=== PATIENT | female | born 1975 | race American Indian/Alaskan Native ===

== ENCOUNTER 2017-02-27 12:29 | Inpatient (IN) | payer MEDICAID ==
[2017-02-27 14:09] LABS: RBC URINE 37 /hpf (0-3); URINE BILIRUBIN NEGATIVE (NEGATIVE); URINE BLOOD 1+ (NEGATIVE); URINE COLOR Yellow (YELLOW); URINE GLUCOSE (UA) NORMAL (Normal); URINE KETONE NEGATIVE (NEGATIVE); URINE LEUKOCYTE ESTERASE NEG Leu/uL (Negative); URINE PROTEIN NEGATIVE (NEGATIVE); WBC URINE 9 /hpf (0-5)
[2017-02-27 14:14] LABS: BASO # 0.1 K/uL (0.0-0.2); BASO % 1.8 % (0.0-2.0); EOS # 0.3 K/uL (0.0-0.7); EOS % 5.4 % (0.0-4.0); HEMATOCRIT 39.1 % (34.0-47.0); LYMPH # 1.2 K/uL (1.0-4.3); LYMPH % 20.8 % (20.0-40.0); MEAN CELL VOLUME 87.1 fL (81.0-99.0); MEAN CORPUSCULAR HEMOGLOBIN 28.5 pg (27.0-31.0); MEAN CORPUSCULAR HGB CONC 32.7 g/dL (33.0-37.0); MEAN PLATELET VOLUME 8.7 fL (7.2-11.7); MONO # 0.9 K/uL (0.0-0.8); MONO % 16.3 % (0.0-10.0); NRBC % 0.1 % (0.0-2.0); RED CELL DISTRIBUTION WIDTH 14.4 % (11.5-14.5)
[2017-02-27 14:16] LABS: WHITE BLOOD COUNT 5.5 K/uL (4.8-10.8)
--- NOTE | 2017-02-27 14:51 | C.PDOC ---
Time Seen by Provider: 02/27/17 13:34 Chief Complaint (Nursing): Psychiatric Evaluation History Per: Patient Onset/Duration Of Symptoms: Days Current Symptoms Are (Timing): Still Present Suicide/Self Injury Attempted (Context): None Modifying Factor(s): Cocaine Severity: Moderate Associated Symptoms: denies: Suicidal Thoughts, Suicidal Plan Additional History Per: Prior Records Past Medical History Reviewed: Historical Data, Nursing Documentation, Vital Signs Vital Signs: Last Vital Signs Temp 98.4 F 02/27/17 13:55 Pulse 94 H 02/27/17 13:55 Resp 20 02/27/17 13:55 BP 158/73 H 02/27/17 13:55 Pulse Ox 100 02/27/17 14:51 - Medical History PMH: Bipolar Disorder, Depression, Hepatitis (C) Other Surgeries: "Ovary removal" Family History: States: Unknown Family Hx - Social History Hx Tobacco Use: Yes Hx Alcohol Use: Yes Hx Substance Use: Yes (IVDU Cocaine) Review Of Systems Except As Marked, All Systems Reviewed And Found Negative. Constitutional: Negative for: Fever, Weakness Cardiovascular: Negative for: Chest Pain Respiratory: Negative for: Shortness of Breath Gastrointestinal: Negative for: Vomiting, Abdominal Pain Musculoskeletal: Negative for: Neck Pain Neurological: Negative for: Weakness, Numbness, Seizures, Altered Mental Status Psych: Positive for: Anxiety Physical Exam - Physical Exam Appears: Non-toxic, No Acute Distress Skin: Normal Color, Warm, Dry, No Rash Head: Atraumatic, Normacephalic Eye(s): bilateral: PERRL, EOMI Neck: Normal ROM, Supple Cardiovascular: Rhythm Regular Respiratory: Normal Breath Sounds, No Accessory Muscle Use Gastrointestinal/Abdominal: Soft, No Tenderness Extremity: Normal ROM, No Deformity Neurological/Psych: Oriented x3, Normal Motor, Normal Sensation ED Course And Treatment - Laboratory Results Result Diagrams: 02/27/17 13:55 02/27/17 13:55 Lab Interpretation: No Acute Changes Urine POC: Negative O2 Sat by Pulse Oximetry: 100 Pulse Ox Interpretation: Normal Progress Note: Pt is medically stable for psychiatric admission. Disposition Counseled Patient/Family Regarding: Studies Performed, Diagnosis, Smoking Cessation - Disposition Disposition: HOSPITALIZED Disposition Time: 15:57 Condition: STABLE - Clinical Impression Clinical Impression: Bipolar disorder Decision To Admit - Pt Status Changed To: Hospital Disposition Of: Inpatient - Admit Certification Admit to Inpatient:: After my assessment, the patient will require hospitalization for at least two midnights. This is because of the severity of symptoms shown, intensity of services needed, and/or the medical risk in this patient being treated as an outpatient. - InPatient: Physician Admission Certification: I certify that this patient requires 2 or more midnights of care for the following reason:: Psych. - . Bed Request Type: Psychiatry Admitting Physician: Trice Mccabe Patient Diagnosis: Bipolar disorder
[2017-02-27 15:14] LABS: CHLORIDE 99 mmol/L (98-107); POTASSIUM 3.7 mmol/L (3.6-5.2); SODIUM 140 mmol/L (132-148)
[2017-02-27 15:16] LABS: BILIRUBIN,TOTAL 0.5 mg/dL (0.2-1.3); GFR AFRICAN-AMERICAN > 60
[2017-02-27 15:17] LABS: ALB/GLOB RATIO 1.1 (1.0-2.1); ALKALINE PHOSPHATASE 50 U/L (38-126); ALT/SGPT 20 U/L (9-52); AST/SGOT 35 U/L (14-36); BLOOD UREA NITROGEN 8 mg/dL (7-17); CALCIUM 9.1 mg/dl (8.6-10.4); CARBON DIOXIDE 29 mmol/L (22-30); GLUCOSE,RANDOM 99 mg/dL (65-105); TOTAL PROTEIN 7.9 g/dL (6.3-8.3)
[2017-02-27 15:18] LABS: ALCOHOL SERUM < 10 mg/dl (0-10)
[2017-02-27 16:47] VITALS: O2SAT 99
--- NOTE | 2017-02-28 10:32 | PCM.PSYCH ---
Initial Psychiatric Evaluation - Initial Psychiatric Evaluation Type of Admission: Voluntary Legal Status: Capacity Chief Complaint (in patient's own words): I was feeling very irritable History of Present Illness and Precipitating Events: Patient is a 41 years old female, who lives with her mother, has 2 children, currently unemployed with a long history of bipolar disorder came to the hospital with auditory hallucinations telling her to kill herself. Patient remained irritable, agitated and a bit disorganized throughout the interview. She was superficially cooperative but remained guarded about the details. She remained a poor historian. She does she had a verbal altercation with her mother and thats why she came to the hospital. Patient reports irritability, agitation poor sleep and poor appetite. She also reports racing of thoughts and flight of ideas. At times she reports depressed mood, feelings of hopelessness and helplessness and anhedonia. She denies any visual decisions and denied any persecutory delusions. She admits of abusing $400 worth of cocaine last week. She also admits to smoking marijuana off and on. she denies any other substance abuse. Next Past medical history None reported Current Medications: Active Medications Generic Name Dose Route Start Last Admin Trade Name Freq PRN Reason Stop Dose Admin Benztropine Mesylate 1 mg 02/28/17 00:29 Cogentin PO Q6 PRN Allergy symptoms Diphenhydramine HCl 50 mg 02/28/17 00:28 Benadryl PO Q6 PRN Extra Pyramidal Symptoms Divalproex Sodium 250 mg 02/28/17 10:[address] PO BID DEBORAH Haloperidol 5 mg 02/28/17 00:28 Haldol PO Q8 PRN Moderate Agitation Haloperidol Lactate 5 mg 02/28/17 00:28 Haldol IM Q8 PRN Moderate Agitation Lorazepam 1 mg 02/28/17 00:28 Ativan PO Q6 PRN Anxiety Risperidone 1 mg 02/28/17 10:30 Risperdal Tab PO BID DEBORAH Trazodone HCl 50 mg 02/28/17 22:00 Desyrel PO HS DEBORAH Past Psychiatric History - Past Psychiatric History Previous Treatment History: None Pertinent Medical Hx (Current Medical&Sleep Prob, Allergies): Allergies Allergy/AdvReac Type Severity Reaction Status Date / Time No Known Allergies Allergy Verified 02/27/17 12:40 [place] 02/27/17 Risperdal 02/27/17 Review of Systems - Review of Systems All systems: reviewed and no additional remarkable complaints except - Psychiatric Psychiatric: Anxiety, Auditory Hallucinations, Depression, Hopelessness, Irritability, Suicidal Ideation. absent: Paranoia, Visual Hallucinations Mental Status Examination - Personal Presentation Personal Presentation: Looks stated age - Affect Affect: Constricted, Depressed - Motor Activity Motor Activity: Calm - Reliability in Providing Information Reliability in Providing Information: Good - Speech Speech: Organized - Mood Mood: Depressed, Anxious - Formal Thought Process Formal Thought Process: Hallucinations, Delusions - Hallucinations/Delusions Hallucinations: Auditory Delusions: Persecution - Obsessions/Compulsions Obsessions: No Compulsions: No - Cognitive Functions Orientation: Person, Place, Situation, Time Sensorium: Alert Attention/Concentration: Attentive Abstract Thinking: [place] Estimate of Intelligence: Below average Judgement: Imparied, as evidence by: Poor judgement, Imparied, as evidence by: Lack of insight into illness - Risk Risk: Suicidal, Withdrawal, Diminished functioning - Strength & Assets Inventory Strength & Assets Inventory: Cooperative DSM 5 DX - DSM 5 DSM 5 Diagnosis: Bipolar disorder most recent episode mixed severe with psychotic features Cocaine use disorder severe Cannabis use disorder mild - Recommended/Plan of Treatment Treatment Recommendations and Plan of Treatment: Bipolar disorder most recent episode mixed severe with psychotic features CBT Psychoeducation Supportive therapy, individual therapy Depakote 250 mg by mouth twice a day Risperdal 1 mg by mouth twice a day Cogentin 1 mg by mouth twice a day Trazodone 50 mg PO Q HS Cocaine use disorder severe Monitor signs and symptoms Use [place] for abstinence Cannabis use disorder mild Monitor signs and symptoms Use [place] for abstinence - Smoking Cessation Smoking Cessation Initiated: No
[2017-02-28] MEDS: Divalproex 250 mg DR Tab PO SCH ×2 (11:28→18:22)
[2017-03-01] MEDS: Divalproex 250 mg DR Tab PO SCH (10:37)
--- NOTE | 2017-03-01 14:16 | PCM.PYCHPN ---
Psychiatric Progress Note - Psychiatric Progress Note Patient seen today, length of contact: 15 min Patient Chief Complaint: I am still feeling very irritable Problems Identified/Issues Discussed: Patient seen and evaluated, chart reviewed and discussed with the nurse. Patient still reports irritability and agitation. She remained isolated and withdrawn. She reports racing thoughts, and poor concentration. She still reports auditory hallucinations. However she is taking medications and denies any side effects. Supportive therapy and psychoeducation were given Medication Change: Yes (increase Depakote) Medical Record Reviewed: Yes Mental Status Examination - Cognitive Function Orientation: Person, Place, Situation, Time Memory: Intact Attention: WNL Concentration: Poor Association: WNL Fund of Knowledge: Poor - Mood Mood: Depressed, Anxious - Affect Affect: Constricted, Depressed - Formal Thought Process Formal Thought Process: Hallucinations, Delusions - Suicidal Ideation Suicidal Ideation: No - Homicidal Ideation Homicidal Ideation: No Goal/Treatment Plan - Goal/Treatment Plan Need for Continued Stay: Discharge may exacerbated symptoms, Severe functional impairment Progress Toward Problem(s) and Goals/Treatment Plan: Bipolar disorder most recent episode mixed severe with psychotic features CBT Psychoeducation Supportive therapy, individual therapy Depakote 250 mg by mouth daily Depakote 500 mg by mouth daily at bedtime Risperdal 1 mg by mouth twice a day Cogentin 1 mg by mouth twice a day Trazodone 50 mg PO Q HS Cocaine use disorder severe Monitor signs and symptoms Use [place] for abstinence Cannabis use disorder mild Monitor signs and symptoms Use [place] for abstinence - Smoking Cessation Smoking Cessation Initiated: No
[2017-03-01] MEDS ORDERED: Divalproex 500 mg DR Tab PO SCH (18:00)
[2017-03-01] MEDS: Divalproex 500 mg DR Tab PO SCH (22:30)
[2017-03-02] MEDS: Divalproex 250 mg DR Tab PO SCH (10:54)
--- NOTE | 2017-03-02 13:45 | PCM.PYCHPN ---
Psychiatric Progress Note - Psychiatric Progress Note Patient seen today, length of contact: 15 min Patient Chief Complaint: I am still feeling very irritable Problems Identified/Issues Discussed: HPI; Patient seen and evaluated. Chart reviewed and discussed with the nurse. Patient report that she is feeling better than yesterday. She is socializing with the other patients although she reports feeling anxious and threatened in an overcrowded room. She also complains of waking up at night in a dreamlike state, searching for drugs in her room. She denies auditory and visual hallucinations, or homicidal and suicidal ideation. She does admit to persecutory delusions. Her appetite is good. Patient also complains of her jaw locking which she attributes to the medications. Supportive therapy and psychoeducation was give. Medication Change: Yes (increase Depakote) Medical Record Reviewed: Yes Mental Status Examination - Cognitive Function Orientation: Person, Place, Situation, Time Memory: Intact Attention: WNL Concentration: Poor Association: WNL Fund of Knowledge: Poor - Mood Mood: Depressed, Anxious - Affect Affect: Constricted, Depressed - Formal Thought Process Formal Thought Process: Hallucinations, Delusions - Suicidal Ideation Suicidal Ideation: No - Homicidal Ideation Homicidal Ideation: No Goal/Treatment Plan - Goal/Treatment Plan Need for Continued Stay: Discharge may exacerbated symptoms, Severe functional impairment Progress Toward Problem(s) and Goals/Treatment Plan: Bipolar disorder most recent episode mixed severe with psychotic features CBT Psychoeducation Supportive therapy, individual therapy Depakote 250 mg by mouth daily Depakote 500 mg by mouth daily at bedtime Risperdal 1 mg by mouth twice a day Cogentin 1 mg by mouth twice a day Trazodone 50 mg PO Q HS Cocaine use disorder severe Monitor signs and symptoms Use [place] for abstinence Cannabis use disorder mild Monitor signs and symptoms Use [place] for abstinence
[2017-03-02] MEDS: Divalproex 500 mg DR Tab PO SCH (21:20)
[2017-03-03 08:44] LABS: BASO % 0.7 % (0.0-2.0); EOS # 0.3 K/uL (0.0-0.7); EOS % 4.5 % (0.0-4.0); LYMPH # 2.1 K/uL (1.0-4.3); LYMPH % 33.6 % (20.0-40.0); MEAN CELL VOLUME 88.2 fL (81.0-99.0); MEAN CORPUSCULAR HEMOGLOBIN 28.3 pg (27.0-31.0); MEAN CORPUSCULAR HGB CONC 32.1 g/dL (33.0-37.0); MEAN PLATELET VOLUME 9.1 fL (7.2-11.7); MONO # 1.3 K/uL (0.0-0.8); MONO % 20.1 % (0.0-10.0); PLATELET COUNT 227 K/uL (130-400); RED CELL DISTRIBUTION WIDTH 14.8 % (11.5-14.5); WHITE BLOOD COUNT 6.4 K/uL (4.8-10.8)
[2017-03-03 09:58] LABS: EOSINOPHIL 4 % (0-4); NEUTROPHIL 46 % (50-75); TOTAL CELLS COUNTED 100
[2017-03-03] MEDS: Divalproex 250 mg DR Tab PO SCH (10:20)
--- NOTE | 2017-03-03 10:29 | PCM.PYCHPN ---
Psychiatric Progress Note - Psychiatric Progress Note Patient seen today, length of contact: 15 min Patient Chief Complaint: I am still feeling very irritable Problems Identified/Issues Discussed: Patient is seen and evaluated. Chart reviewed and discussed with the nurse. Pt stated that she is agitated, emotionally distraught with racing thoughts due to issues with her life partner. She appears withdrawn. Patient denies suicidal or homicidal ideation although she has thoughts of hurting others and admits hearing a hostile voice in her head that is encouraging aggression toward her partner. She is also complaining of headaches, palpitations and nasal congestion. Medication Change: Yes (increase Depakote, increase risperdal) Medical Record Reviewed: Yes Mental Status Examination - Cognitive Function Orientation: Person, Place, Situation, Time Memory: Intact Attention: WNL Concentration: Poor Association: WNL Fund of Knowledge: Poor - Mood Mood: Depressed, Anxious - Affect Affect: Constricted, Depressed - Formal Thought Process Formal Thought Process: Hallucinations, Delusions - Suicidal Ideation Suicidal Ideation: No - Homicidal Ideation Homicidal Ideation: No Goal/Treatment Plan - Goal/Treatment Plan Need for Continued Stay: Discharge may exacerbated symptoms, Severe functional impairment Progress Toward Problem(s) and Goals/Treatment Plan: Bipolar disorder most recent episode mixed severe with psychotic features CBT Psychoeducation Supportive therapy, individual therapy Increase Depakote 500 mg by mouth daily Depakote 500 mg by mouth daily at bedtime Risperdal 2 mg by mouth daily Risperdal 2 mg by mouth HS Cogentin 1 mg by mouth twice a day Trazodone 50 mg PO Q HS Cocaine use disorder severe Monitor signs and symptoms Use [place] for abstinence Cannabis use disorder mild Monitor signs and symptoms Use [place] for abstinence
[2017-03-03] MEDS: Divalproex 500 mg DR Tab PO SCH (21:22)
[2017-03-04] MEDS ORDERED: Divalproex 250 mg DR Tab PO SCH (10:00)
--- NOTE | 2017-03-04 10:54 | RAD ---
HISTORY: r/o TB COMPARISON: None available. TECHNIQUE: Chest PA and lateral FINDINGS: LUNGS: No focal consolidation. Please note that chest x-ray has limited sensitivity for the detection of pulmonary masses. PLEURA: No significant pleural effusion identified. No definite pneumothorax . CARDIOVASCULAR: The cardiomediastinal silhouette appears within normal limits of size. OSSEOUS STRUCTURES: No acute osseous abnormality identified. VISUALIZED UPPER ABDOMEN: Unremarkable. OTHER FINDINGS: None. IMPRESSION: No focal consolidation, significant pleural effusion, or definite pneumothorax identified.
--- NOTE | 2017-03-05 18:04 | CP.PCM.CON ---
Past Patient History - Past Social History Smoking Status: Heavy Smoker > 10 Cigarettes Daily - CARDIAC Hx Cardiac Disorders: No Hx Hypertension: No - PULMONARY Hx Tuberculosis: No - NEUROLOGICAL HX Cerebrovascular Accident: No Hx Seizures: No - HEMATOLOGICAL/ONCOLOGICAL Hx Cancer: No Hx Human Immunodeficiency Virus (HIV): No - MUSCULOSKELETAL/RHEUMATOLOGICAL Hx Falls: No - GENITOURINARY/GYNECOLOGICAL Hx Sexually Transmitted Disorders: No - PSYCHIATRIC Hx Substance Use: Yes - SURGICAL HISTORY Hx Surgeries: Yes Other/Comment: RIGHT OVARY REMOVED Meds Allergies/Adverse Reactions: Allergies Allergy/AdvReac Type Severity Reaction Status Date / Time No Known Allergies Allergy Verified 02/27/17 12:40 - Medications Medications: Current Medications Benztropine Mesylate (Cogentin) 1 mg PO Q6 PRN PRN Reason: Allergy symptoms Last Admin: 03/03/17 19:04 Dose: 1 mg Diphenhydramine HCl (Benadryl) 50 mg PO Q6 PRN PRN Reason: Extra Pyramidal Symptoms Last Admin: 03/03/17 19:04 Dose: 50 mg Haloperidol (Haldol) 5 mg PO Q8 PRN PRN Reason: Moderate Agitation Last Admin: 03/03/17 19:04 Dose: 5 mg Haloperidol Lactate (Haldol) 5 mg IM Q8 PRN PRN Reason: Moderate Agitation Ibuprofen (Motrin Tab) 600 mg PO Q6 PRN PRN Reason: Pain, moderate (4-7) Lorazepam (Ativan) 1 mg PO Q6 PRN PRN Reason: Anxiety Last Admin: 03/05/17 12:03 Dose: 1 mg Nicotine (Nicoderm Cq) 1 patch TD DAILY DEBORAH Last Admin: 03/05/17 09:57 Dose: 1 patch Risperidone (Risperdal Tab) 2 mg PO HS DEBORAH Last Admin: 03/04/17 21:44 Dose: 2 mg Risperidone (Risperdal Tab) 2 mg PO DAILY DEBORAH Last Admin: 03/05/17 09:56 Dose: 2 mg Trazodone HCl (Desyrel) 100 mg PO HS DEBORAH Last Admin: 03/04/17 21:43 Dose: 100 mg Results - Vital Signs Recent Vital Signs: Last Vital Signs Temp 97.9 F 03/05/17 07:49 Pulse 101 H 03/05/17 15:50 Resp 16 03/05/17 07:49 BP 108/64 03/05/17 15:50 Pulse Ox 99 03/04/17 07:36 - Labs Result Diagrams: 03/03/17 08:29 02/27/17 13:55
--- NOTE | 2017-03-05 18:46 | CP.PCM.PN ---
Subjective - Date & Time of Evaluation Date of Evaluation: 03/05/17 Time of Evaluation: 18:36 - Subjective Subjective: House Doctor Note: 41 year old female with PMHx of Hepatitis C admitted to [facility] for suicide attempt ( OD on cocaine). Ms. Donnie Michael is a patient of Dr. Lori Oconnell and last saw him 2 weeks ago. Patient admits to 3 day history of pain with swallowing, mostly right side. Pain began all of a sudden and has been progressive. Denies chest pain, SOB, fevers, chills, nausea, vomiting diarrhea, constipation. Denies sick contacts. PMHx: Hepatitis C (diagnosed 15 years ago and untreated). Meds: none Social: smokes 6 cigarets daily for the past 13 years. She drinks alcohol socially. Family Hx: Cancer on mother's side. Surgery: R ovarian abscess with R salpingoopherectomy. PMD: Dr. Sandra Oconnell. Objective - Vital Signs/Intake and Output Vital Signs (last 24 hours): Temp Pulse Resp BP Pulse Ox 97.9 F 101 H 16 108/64 99 03/05/17 07:49 03/05/17 15:50 03/05/17 07:49 03/05/17 15:50 03/04/17 07:36 - Medications Medications: Current Medications Benztropine Mesylate (Cogentin) 1 mg PO Q6 PRN PRN Reason: Allergy symptoms Last Admin: 03/03/17 19:04 Dose: 1 mg Diphenhydramine HCl (Benadryl) 50 mg PO Q6 PRN PRN Reason: Extra Pyramidal Symptoms Last Admin: 03/03/17 19:04 Dose: 50 mg Haloperidol (Haldol) 5 mg PO Q8 PRN PRN Reason: Moderate Agitation Last Admin: 03/03/17 19:04 Dose: 5 mg Haloperidol Lactate (Haldol) 5 mg IM Q8 PRN PRN Reason: Moderate Agitation Ibuprofen (Motrin Tab) 600 mg PO Q6 PRN PRN Reason: Pain, moderate (4-7) Lorazepam (Ativan) 1 mg PO Q6 PRN PRN Reason: Anxiety Last Admin: 03/05/17 12:03 Dose: 1 mg Nicotine (Nicoderm Cq) 1 patch TD DAILY DEBORAH Last Admin: 03/05/17 09:57 Dose: 1 patch Nystatin (Nystatin Oral Susp) 5 ml PO QID DEBORAH Risperidone (Risperdal Tab) 2 mg PO HS [facility] Last Admin: 03/04/17 21:44 Dose: 2 mg Risperidone (Risperdal Tab) 2 mg PO DAILY DEBORAH Last Admin: 03/05/17 09:56 Dose: 2 mg Trazodone HCl (Desyrel) 100 mg PO HS [facility] Last Admin: 03/04/17 21:43 Dose: 100 mg - Labs Labs: 03/03/17 08:29 - Constitutional Appears: No Acute Distress - Head Exam Head Exam: NORMAL INSPECTION, NORMOCEPHALIC - Eye Exam Eye Exam: EOMI, Normal appearance - ENT Exam ENT Exam: Mucous Membranes Moist Additional comments: +thrush over tongue - Neck Exam Neck Exam: Full ROM, Lymphadenopathy (right painful submandibular lymphadenopathy ), Normal Inspection - Respiratory Exam Respiratory Exam: Clear to Ausculation Bilateral - Cardiovascular Exam Cardiovascular Exam: REGULAR RHYTHM, +S1, +S2 - GI/Abdominal Exam GI & Abdominal Exam: Soft. absent: Distended, Tenderness - Extremities Exam Extremities Exam: Full ROM - Back Exam Back Exam: NORMAL INSPECTION - Neurological Exam Neurological Exam: Alert, Awake, Oriented x3 Assessment and Plan (1) Thrush, oral Assessment & Plan: Start Nystatin Oral. Ibuprofen liquid Q6H PRN (changed from PO tabs). CXR done 03/04/17 is normal. May need ENT consult Status: Acute (2) Hepatitis C Assessment & Plan: Diagnosed 15 years ago, untreated. Patient would like to keep information confidential. Recommend GI consult Status: Acute - Assessment and Plan (Free Text) Assessment: Consult Dr. Oconnell who is patient's primary physician.
[2017-03-05] MEDS: Nystatin 100,000 Units/ml Oral Susp 5 ml UD PO SCH (21:14)
--- NOTE | 2017-03-06 05:54 | PCM.PYCHPN ---
Psychiatric Progress Note - Psychiatric Progress Note Patient seen today, length of contact: 15 min Patient Chief Complaint: my neck isstiff, my jaw hurts i think the depakote is causing me these problems Problems Identified/Issues Discussed: d/w pt rispewrdal could be cause, pt insists [facility] Medical Problems: possible EPS from Depakote Diagnostic Results: reviewed DSM 5 Symptoms Update: anxious about side effect Medication Change: Yes (stop depakote) Medical Record Reviewed: Yes Mental Status Examination - Cognitive Function Orientation: Person, Place, Situation, Time Memory: Intact Attention: WNL Concentration: Poor Association: WNL Fund of Knowledge: Poor - Mood Mood: Depressed, Anxious - Affect Affect: Constricted, Depressed - Speech Speech: Appropriate - Suicidal Ideation Suicidal Ideation: No - Homicidal Ideation Homicidal Ideation: No Goal/Treatment Plan - Goal/Treatment Plan Need for Continued Stay: Discharge may exacerbated symptoms, Severe functional impairment Progress Toward Problem(s) and Goals/Treatment Plan: less irritable little psychosis Estimated Date of D/C: 03/08/17 - Smoking Cessation Smoking Cessation Initiated: No
--- NOTE | 2017-03-06 06:01 | PCM.PYCHPN ---
Psychiatric Progress Note - Psychiatric Progress Note Patient seen today, length of contact: 15 min Patient Chief Complaint: I am not stiff any more. Problems Identified/Issues Discussed: with depakote panteraed. discussed other mood stabilizers lamictal trileptal and others risks and benefits of each Medical Problems: nothing acute Diagnostic Results: reviwed DSM 5 Symptoms Update: less anxious Medication Change: Yes (start trileptal) Medical Record Reviewed: Yes Consults ordered or reviewed: iwllow jones Mental Status Examination - Cognitive Function Orientation: Person, Place, Situation, Time Memory: Intact Attention: WNL Concentration: Poor Association: WNL Fund of Knowledge: Poor - Mood Mood: Depressed, Anxious - Affect Affect: Constricted, Depressed - Speech Speech: Appropriate - Formal Thought Process Formal Thought Process: Hallucinations, Delusions - Suicidal Ideation Suicidal Ideation: No - Homicidal Ideation Homicidal Ideation: No Goal/Treatment Plan - Goal/Treatment Plan Need for Continued Stay: Discharge may exacerbated symptoms, Severe functional impairment Progress Toward Problem(s) and Goals/Treatment Plan: less hopeless. kless helpless less worthless Estimated Date of D/C: 03/08/17 - Smoking Cessation Smoking Cessation Initiated: No
[2017-03-06 08:55] LABS: BASO % 0.5 % (0.0-2.0); EOS # 0.3 K/uL (0.0-0.7); EOS % 4.9 % (0.0-4.0); HEMATOCRIT 39.7 % (34.0-47.0); LYMPH # 1.8 K/uL (1.0-4.3); LYMPH % 33.9 % (20.0-40.0); MEAN CORPUSCULAR HEMOGLOBIN 28.4 pg (27.0-31.0); MEAN CORPUSCULAR HGB CONC 32.3 g/dL (33.0-37.0); MEAN PLATELET VOLUME 8.7 fL (7.2-11.7); MONO # 1.1 K/uL (0.0-0.8); NRBC % 0.1 % (0.0-2.0); PLATELET COUNT 249 K/uL (130-400); RED CELL DISTRIBUTION WIDTH 15.2 % (11.5-14.5); WHITE BLOOD COUNT 5.2 K/uL (4.8-10.8)
[2017-03-06 08:56] LABS: CHLORIDE 100 mmol/L (98-107); POTASSIUM 4.6 mmol/L (3.6-5.2); SODIUM 138 mmol/L (132-148)
[2017-03-06 08:58] LABS: ALB/GLOB RATIO 1.1 (1.0-2.1); AST/SGOT 44 U/L (14-36); BILIRUBIN,TOTAL 0.6 mg/dL (0.2-1.3); CARBON DIOXIDE 25 mmol/L (22-30); GFR AFRICAN-AMERICAN > 60; TOTAL PROTEIN 7.9 g/dL (6.3-8.3)
[2017-03-06 08:59] LABS: ALKALINE PHOSPHATASE 51 U/L (38-126); ALT/SGPT 25 U/L (9-52); BLOOD UREA NITROGEN 16 mg/dL (7-17); CALCIUM 9.2 mg/dl (8.6-10.4); GLUCOSE,RANDOM 84 mg/dL (65-105); MAGNESIUM 1.9 mg/dL (1.6-2.3)
[2017-03-06] MEDS: Nystatin 100,000 Units/ml Oral Susp 5 ml UD PO SCH ×3 (09:47→17:55)
--- NOTE | 2017-03-06 09:59 | PCM.PYCHPN ---
Psychiatric Progress Note - Psychiatric Progress Note Patient seen today, length of contact: 15 min Patient Chief Complaint: I am still feeling very irritable Problems Identified/Issues Discussed: Patient was seen and evaluated. Chart reviewed and discussed with the nurse. Patient was cooperative and is reporting feeling agitated irritable and anxious. She states that her mouth and body are doing weird things that she never experienced before. She states that she feels like she is catching a cold and complains of a new onset of abdominal pain, headaches, burning sensation on her tongue and oral thrush which she cannot scrape off. She states that her symptoms are preventing her from eating or drinking. Pt denies visual and auditory hallucinations, delusions of persecution. Patient mentioned that she stopped taking Depakote and now she would like to continue again. Supportive therapy and PsychEducation were provided. Medication Change: Yes (start depakote) Medical Record Reviewed: Yes Mental Status Examination - Cognitive Function Orientation: Person, Place, Situation, Time Memory: Intact Attention: WNL Concentration: Poor Association: WNL Fund of Knowledge: Poor - Mood Mood: Depressed, Anxious - Affect Affect: Constricted, Depressed - Speech Speech: Appropriate - Formal Thought Process Formal Thought Process: Hallucinations, Delusions - Suicidal Ideation Suicidal Ideation: No - Homicidal Ideation Homicidal Ideation: No Goal/Treatment Plan - Goal/Treatment Plan Need for Continued Stay: Discharge may exacerbated symptoms, Severe functional impairment Progress Toward Problem(s) and Goals/Treatment Plan: Bipolar disorder most recent episode mixed severe with psychotic features CBT Psychoeducation Supportive therapy, individual therapy Start Depakote 250 mg by mouth daily at bedtime Risperdal 2 mg by mouth daily Risperdal 2 mg by mouth HS Cogentin 1 mg by mouth twice a day Trazodone 50 mg PO Q HS Cocaine use disorder severe Monitor signs and symptoms Use [place] for abstinence Cannabis use disorder mild Monitor signs and symptoms Use [place] for abstinence Estimated Date of D/C: 03/08/17
[2017-03-06] MEDS: Divalproex 250 mg DR Tab PO SCH ×2 (10:19→17:56)
[2017-03-06 11:21] LABS: EOSINOPHIL 3 % (0-4); NEUTROPHIL 47 % (50-75); TOTAL CELLS COUNTED 100
--- NOTE | 2017-03-06 14:41 | CP.PCM.PN ---
Subjective - Date & Time of Evaluation Date of Evaluation: 03/06/17 Time of Evaluation: 09:00 - Subjective Subjective: Medicine Progress Note- Dr. Oconnell's Service: Patient seen and examined in 5E today. She continues to complain of pain with swallowing. She was able to eat meals otherwise. Denies chest pain, SOB, fevers , chills, nausea, vomiting. She just started using Nystatin last night. No other complaints this AM. Objective - Vital Signs/Intake and Output Vital Signs (last 24 hours): Temp Pulse Resp BP Pulse Ox 97.6 F 81 16 100/59 L 99 03/06/17 08:02 03/06/17 08:02 03/06/17 08:02 03/06/17 08:02 03/04/17 07:36 - Medications Medications: Current Medications Benztropine Mesylate (Cogentin) 1 mg PO Q6 PRN PRN Reason: Allergy symptoms Last Admin: 03/03/17 19:04 Dose: 1 mg Diphenhydramine HCl (Benadryl) 50 mg PO Q6 PRN PRN Reason: Extra Pyramidal Symptoms Last Admin: 03/03/17 19:04 Dose: 50 mg Divalproex Sodium (Depakote Dr) 250 mg PO BID [facility] Last Admin: 03/06/17 10:19 Dose: 250 mg Haloperidol (Haldol) 5 mg PO Q8 PRN PRN Reason: Moderate Agitation Last Admin: 03/03/17 19:04 Dose: 5 mg Haloperidol Lactate (Haldol) 5 mg IM Q8 PRN PRN Reason: Moderate Agitation Ibuprofen (Motrin Tab) 400 mg PO Q6H PRN PRN Reason: Sore Throat Last Admin: 03/06/17 13:29 Dose: 400 mg Lorazepam (Ativan) 1 mg PO Q6 PRN PRN Reason: Anxiety Last Admin: 03/06/17 13:45 Dose: 1 mg Nicotine (Nicoderm Cq) 1 patch TD DAILY [facility] Last Admin: 03/06/17 09:47 Dose: 1 patch Nystatin (Nystatin Oral Susp) 5 ml PO QID [facility] Last Admin: 03/06/17 13:28 Dose: 5 ml Risperidone (Risperdal Tab) 2 mg PO HS [facility] Last Admin: 03/05/17 21:14 Dose: 2 mg Risperidone (Risperdal Tab) 2 mg PO DAILY [facility] Last Admin: 03/06/17 09:47 Dose: 2 mg Trazodone HCl (Desyrel) 100 mg PO HS [facility] Last Admin: 03/05/17 21:13 Dose: 100 mg - Labs Labs: 03/06/17 08:40 03/06/17 08:40 - Constitutional Appears: No Acute Distress - Head Exam Head Exam: NORMAL INSPECTION, NORMOCEPHALIC - Eye Exam Eye Exam: EOMI, Normal appearance - ENT Exam ENT Exam: Mucous Membranes Moist Additional comments: +oral white patches over tongue. No patches over roof of mouth or throat. - Neck Exam Neck Exam: Full ROM, Normal Inspection - Respiratory Exam Respiratory Exam: Clear to Ausculation Bilateral, NORMAL BREATHING PATTERN - Cardiovascular Exam Cardiovascular Exam: REGULAR RHYTHM, +S1, +S2 - GI/Abdominal Exam GI & Abdominal Exam: Soft. absent: Distended, Tenderness - Neurological Exam Neurological Exam: Alert, Awake, Oriented x3 - Psychiatric Exam Psychiatric exam: Normal Affect, Normal Mood - Skin Skin Exam: Dry, Normal Color, Warm Assessment and Plan - Assessment and Plan (Free Text) Assessment: (1) Thrush, oral Assessment & Plan: No leukocytosis and afebrile. Continue Nystatin Oral- nursing communication placed to ensure patient swishes for several minuted and then swallows solution. Ibuprofen liquid Q6H PRN (changed from PO tabs). CXR done 03/04/17 is normal. May need ENT consult . Status: Acute (2) Hepatitis C Assessment & Plan: Diagnosed 15 years ago, untreated. Patient would like to keep information confidential. Recommend GI consult Status: Acute - Assessment and Plan (Free Text) Assessment: Consult Dr. Oconnell who is patient's primary physician.
[2017-03-07 08:27] LABS: CHLORIDE 102 mmol/L (98-107); POTASSIUM 4.6 mmol/L (3.6-5.2); SODIUM 136 mmol/L (132-148)
[2017-03-07 08:29] LABS: BILIRUBIN,TOTAL 0.4 mg/dL (0.2-1.3); GFR AFRICAN-AMERICAN > 60
[2017-03-07 08:30] LABS: ALB/GLOB RATIO 1.1 (1.0-2.1); ALKALINE PHOSPHATASE 46 U/L (38-126); ALT/SGPT 28 U/L (9-52); AST/SGOT 36 U/L (14-36); BLOOD UREA NITROGEN 17 mg/dL (7-17); CALCIUM 8.5 mg/dl (8.6-10.4); CARBON DIOXIDE 23 mmol/L (22-30); GLUCOSE,RANDOM 81 mg/dL (65-105); MAGNESIUM 1.9 mg/dL (1.6-2.3); TOTAL PROTEIN 7.1 g/dL (6.3-8.3)
[2017-03-07 08:56] LABS: BASO % 0.7 % (0.0-2.0); EOS # 0.3 K/uL (0.0-0.7); EOS % 5.1 % (0.0-4.0); HEMATOCRIT 35.5 % (34.0-47.0); LYMPH # 2.1 K/uL (1.0-4.3); LYMPH % 36.9 % (20.0-40.0); MEAN CELL VOLUME 87.4 fL (81.0-99.0); MEAN CORPUSCULAR HEMOGLOBIN 28.8 pg (27.0-31.0); MEAN CORPUSCULAR HGB CONC 32.9 g/dL (33.0-37.0); MEAN PLATELET VOLUME 8.9 fL (7.2-11.7); MONO # 1.3 K/uL (0.0-0.8); MONO % 23.1 % (0.0-10.0); NRBC % 0.2 % (0.0-2.0); PLATELET COUNT 239 K/uL (130-400); RED CELL DISTRIBUTION WIDTH 14.9 % (11.5-14.5); WHITE BLOOD COUNT 5.6 K/uL (4.8-10.8)
[2017-03-07] MEDS: Nystatin 100,000 Units/ml Oral Susp 5 ml UD PO SCH ×4 (09:54→21:09)
[2017-03-07] MEDS: Divalproex 250 mg DR Tab PO SCH (09:55)
[2017-03-07 10:11] LABS: NEUTROPHIL 39 % (50-75); TOTAL CELLS COUNTED 100
--- NOTE | 2017-03-07 10:43 | PCM.PYCHPN ---
Psychiatric Progress Note - Psychiatric Progress Note Patient seen today, length of contact: 15 min Patient Chief Complaint: I am still feeling very irritable Problems Identified/Issues Discussed: Patient was seen and evaluated. Chart reviewed and discussed with the nurse. Patient was cooperative and is reporting feeling agitated irritable and anxious. She is also complaining of fatigue and nasal congestion. She is unable to eat or drink due to a burning sensation and pain in her throat. She denies fevers or chills, nausea or vomiting. She denies homicidal or suicidal ideation, visual or auditory hallucinations or persecutory delusions. She has no problem sleeping. No medication side effects. Supportive therapy and PsychEducation were provided. Medication Change: Yes (Increase depakote) Medical Record Reviewed: Yes Mental Status Examination - Cognitive Function Orientation: Person, Place, Situation, Time Memory: Intact Attention: WNL Concentration: Poor Association: WNL Fund of Knowledge: Poor - Mood Mood: Depressed, Anxious - Affect Affect: Constricted, Depressed - Speech Speech: Appropriate - Formal Thought Process Formal Thought Process: Hallucinations, Delusions - Suicidal Ideation Suicidal Ideation: No - Homicidal Ideation Homicidal Ideation: No Goal/Treatment Plan - Goal/Treatment Plan Need for Continued Stay: Discharge may exacerbated symptoms, Severe functional impairment Progress Toward Problem(s) and Goals/Treatment Plan: Bipolar disorder most recent episode mixed severe with psychotic features CBT Psychoeducation Supportive therapy, individual therapy Depakote 500 mg by mouth daily BID Risperdal 2 mg by mouth daily Risperdal 2 mg by mouth HS Cogentin 1 mg by mouth twice a day Trazodone 50 mg PO Q HS Cocaine use disorder severe Monitor signs and symptoms Use [place] for abstinence Cannabis use disorder mild Monitor signs and symptoms Use [place] for abstinence Estimated Date of D/C: 03/08/17
[2017-03-07] MEDS ORDERED: Divalproex 500 mg DR Tab PO SCH (18:00)
--- NOTE | 2017-03-08 09:08 | PCM.PYCHDC ---
Mental Status Examination - Mental Status Examination Orientation: Person, Place, Situation, Time Memory: Intact Mood: Neutral Affect: Constricted Speech: Loud, Soft Attention: WNL Concentration: WNL Association: WNL Fund of Knowledge: WNL Formal Thought Process: No Impairment Description of patient's judgement and insight: good, fair Psychotic Thoughts and Behaviors: denies any AVH Suicidal Ideation: No Current Homicidal Ideation?: No Discharge Summary - Discharge Note Reason for Hospitalization: Patient is a 41 years old female, who lives with her mother, has 2 children, currently unemployed with a long history of bipolar disorder came to the hospital with auditory hallucinations telling her to kill herself. Patient remained irritable, agitated and a bit disorganized throughout the interview. She was superficially cooperative but remained guarded about the details. She remained a poor historian. She does she had a verbal altercation with her mother and thats why she came to the hospital. Patient reports irritability, agitation poor sleep and poor appetite. She also reports racing of thoughts and flight of ideas. At times she reports depressed mood, feelings of hopelessness and helplessness and anhedonia. She denies any visual decisions and denied any persecutory delusions. She admits of abusing $400 worth of cocaine last week. She also admits to smoking marijuana off and on. she denies any other substance abuse. Next Laboratory Data: Abnormal Lab Results 03/07/17 08:05 Neutrophils % (Manual) 39 L Band Neutrophils % 1 Lymphocytes % (Manual) 46 H Monocytes % (Manual) 14 H Platelet Estimate Normal Hypochromasia (manual) Slight Consultations:: List each consultation separately and include: 1. Reason for request. 2. Findings. 3. Follow-up Summary of Hospital Course include:: 1. Description of specific treatment plan utilized for patients during their course of treatmen. 2. Summarize the time- course for resolution of acute symptoms and/or regressed behaviors. 3. Describe issues identified and worked on during hospitalization. 4. Describe medication utilized. 5. Describe medical problems identified and treated. 6. Reassessment of suicide risk Summary of Hospital Course: During the course of her stay, patient (pt) started progressively improving and she no longer remained irritable, anxious and paranoid. Her mood and paranoia were improved and she started attending groups and meetings and started socializing. Patient denied any feelings of hopelessness, helplessness, and worthlessness, denied any problem with the sleep or appetite, denied suicidal ideation or homicidal ideation. Pt denied any auditory or visual hallucinations. Some changes were made in her current medications and patient was discharged on following medications. She tolerated these medications very well and denied any side effects. - Final Diagnosis (DSM 5) Condition upon Discharge: STABLE DSM 5: Bipolar disorder most recent episode mixed severe with psychotic features Cocaine use disorder severe Cannabis use disorder mild Disposition: HOME/ ROUTINE Follow-up Treatment Plan: Education: Pt was educated and counseled about the risks and benefits of taking and not taking medications. Pt was educated and counseled about the risks of drinking and abusing drugs. Pt was educated and counseled to go to the ER or call 911 if pt develop suicidal ideation or homicidal ideation, worsening of symptoms or severe side effects of the meds. Prescriptions/Medication Reconciliation: Benztropine [Cogentin] 1 mg PO BID PRN #60 tab PRN Reason: Allergy Symptoms Divalproex [Depakote DR] 500 mg PO BID #60 tcp Nystatin [Nystatin Oral Susp] 5 ml PO QID #1 risperiDONE [RisperDAL Tab] 2 mg PO BID #60 tab traZODone [Desyrel] 100 mg PO HS #30 tab - Smoking Cessation Smoking Cessation Medication prescribed: No - Antipsychotic Medications Pt discharged on 2 or more routine antipsychotic medications: No
[2017-03-08 14:21] VITALS: BP 104/72; PULSE 74; RESP 18; TEMP 98.4
== END 2017-03-08 09:46 | disposition home or self-care (01) | DRG 430 ==
LOC: C.ER 12:29 → C.5E 15:59
PROVIDERS: ADMIT Psychiatry & Neurology Psychiatry; ATTEND Psychiatry & Neurology Psychiatry
PROC: GZHZZZZ Group Psychotherapy (ICD-10-PCS; principal; 2017-02-27)
PROC: GZ58ZZZ Individual Psychotherapy, Cognitive-Behavioral (ICD-10-PCS; 2017-02-27)
PROC: GZ56ZZZ Individual Psychotherapy, Supportive (ICD-10-PCS; 2017-02-27)
DX: F31.63 Bipolar disorder, current episode mixed, severe, without psychotic features (principal); B37.0 Candidal stomatitis; F14.90 Cocaine use, unspecified, uncomplicated; F12.90 Cannabis use, unspecified, uncomplicated